=== PATIENT | female | born 1985 | race Caucasian/White ===

== ENCOUNTER 2025-07-26 16:17 | Outpatient (CLI) | payer BC, SELFPAY | END 2025-07-26 16:18 | disposition home or self-care (01) | PROVIDERS: PCP Physician Assistant Medical; Visit Provider Physician Assistant Medical | DX: E03.9 Hypothyroidism, unspecified (principal); Z00.00 Encounter for general adult medical examination without abnormal findings | CPT/HCPCS: 80053; 80061; 82728; 83520; 84443; 86376 ==